=== PATIENT | female | born 1940 | race Caucasian/White ===

== ENCOUNTER 2021-08-28 14:15 | Emergency (ER) | payer MEDICARE ==
[~2021-08-28 14:15] MED LIST: MACROBID100 MG PO; MEDROL 4MG DOSEP4 MG PO; PROMETHEGA12.5 MG/SU PR; VENTOLIN HFA IN18 GM INH; ZOFRAN4 MG PO
[2021-08-28] MEDS ORDERED: MOBIC7.5 MG PO (16:37)
== END 2021-08-28 16:52 | disposition home or self-care (01) ==
LOC: FER 14:15
DX: M25.571 Pain in right ankle and joints of right foot (principal); U07.1 COVID-19; I10 Essential (primary) hypertension; Z79.899 Other long term (current) drug therapy
CPT/HCPCS: 73610; 73630